=== PATIENT | female | born 1980 | race Two or more races ===

== ENCOUNTER 2022-01-17 17:21 | Emergency (ER) | payer OTHER ==
[~2022-01-17] VITALS: Ht 167.6 cm; Wt 81.2 kg
[2022-01-17] MEDS ORDERED: CYMBALTA20 MG PO (17:33)
[2022-01-17] MEDS ORDERED: TYLENOL325 MG PO (17:34)
[2022-01-17] MEDS ORDERED: VITAMIN B12 IV (17:35)
[2022-01-17] MEDS ORDERED: MACROBID 100 M100 MG PO (20:40)
[2022-01-17] MEDS ORDERED: PYRIDIUM DS200 MG PO (20:47)
== END 2022-01-17 21:40 | disposition home or self-care (01) ==
LOC: ER 17:21
DX: R30.0 Dysuria (principal); Z88.8 Allergy status to other drugs, medicaments and biological substances